=== PATIENT | male | born 1995 | race Hispanic/Latino ===

== ENCOUNTER 2021-06-15 15:12 | Emergency (ER) | payer SELFPAY ==
[2021-06-15 15:25] VITALS: BP 101/71; PULSE 82; RESP 16; TEMP 36.1; O2SAT 99
--- NOTE | 2021-06-15 15:25 | ED.ABDPAIN ---
HPI - Abdominal Pain General Chief Complaint: Abdominal Pain Stated Complaint: Stomach Pain Time Seen by Provider: 06/15/21 15:25 Source: patient and RN notes reviewed Mode of arrival: ambulatory Limitations: no limitations History of Present Illness HPI narrative: 26-year-old male presents to the [facility] with complaints of abdominal pain for 2-3 days. Pain to the lower abd. Denies nausea vomiting or diarrhea. No urinary symptoms. Last bowel movement was today. Denies fevers. Review of Systems Review of Systems: All systems reviewed & are unremarkable except as noted in HPI and below Constitutional: Constitutional: Reports no additional constitutional complaints Eyes: Eyes: Reports no additional eye complaints ENT: Reports system reviewed and no additional complaints, except as documented Cardiovascular: Cardiovascular: Reports no additional cardiovascular complaints Respiratory: Respiratory: Reports no additional respiratory complaints Gastrointestinal: Gastrointestinal: Reports abdominal pain (lower abd pain ), Denies diarrhea, Denies nausea and Denies vomiting Genitourinary: Genitourinary: Reports no additional male genitourinary complaints, Denies hematuria, Denies oliguria, Denies dysuria, Denies penile discharge, Denies urinary frequency and Denies urinary incontinence Musculoskeletal: Musculoskeletal: Reports no additional musculoskeletal complaints Integumentary/Breasts: Skin/Breast: Reports system reviewed and no additional complaints, except as docu Neurologic: Reports system reviewed and no additional complaints, except as documented Psychiatric: Psychiatric: Reports no additional psychiatric complaints Allergic/Immunologic: Allergic/Immunologic: Reports no additional allergic/immunologic complaints PMFSH Past Medical History Medical History (Updated 06/15/21 @ 15:33 by Desire Munguia) Patient denies significant medical history Surgical History Surgical History (Updated 06/15/21 @ 15:34 by Desire Munguia) No significant past surgical history Social History Social History (Updated 06/15/21 @ 15:34 by Desire Munguia) Gender identity (if verbalized by the patient): Male Comments At the time of my signature, I reviewed and agree with the nursing past medical, surgical, social, and family history. There is no relevant family history pertinent to the patient complaint. Exam Const: General: healthy appearing, no acute distress and alert Nutritional Appearance: well nourished and thin Orientation/consciousness: patient oriented x3 Limitations: no limitations and language barrier (Patient Marshallese-speaking. ) Other: Patient wanted to use friend as web services architect, broken Wolof. Used [employer] web services architect. HENMT: Head: normal to inspection Ears: external ears normal Eyes: Pupils: Equal, round and reactive pupils present Neck: Neck: normal visual inspection, no lymphadenopathy and no meningeal signs Chest: Chest palpation & inspection: normal inspection of the chest Resp: Effort & Inspection: normal respiratory effort and no use of accessory muscles Auscultation: clear to auscultation bilaterally, no crackles, no rales, no rhonchi and no wheezes Cardio: Rate: regular rate Rhythm: regular rhythm GI: GI Palp: Yes Soft to palpation, Yes Tenderness to palpation present (GI) (Left lower quadrant tenderness.), No Guarding due to palpation present (GI), No Rigid due to palpation and No Rebound tenderness present Auscultation: normal bowel sounds Other: With palpation of the left lower quadrant, complains of pain in the suprapubic and right lower quadrant pain. Tenderness in the suprapubic and umbilical area with palpation Back/Spine/Pelvis: Back: no CVA tenderness Skin: General skin exam: normal color Rashes: no rashes Wounds: no wounds Neuro: General: patient oriented x3, moves all extremities, no meningeal signs and no focal motor deficits Speech: normal speech Gait exam (Neuro): Normal gait
== END 2021-06-15 15:44 | disposition short-term general hospital (02) ==
LOC: EXPCOLL 15:16
PROVIDERS: Emergency Provider Nurse Practitioner
DX: R10.30 Lower abdominal pain, unspecified (principal)
CPT/HCPCS: 99202; G0463

== ENCOUNTER 2021-06-15 15:56 | Emergency (ER) | payer SELFPAY ==
--- NOTE | ~2021-06-15 | CT_ITS ---
EXAMINATION: CT abdomen pelvis wo con DATE: 06/15/2021 17:24 INDICATION: Low pelvic pain. Hematuria. TECHNIQUE: Computed tomography (CT) of the abdomen and pelvis was performed without intravenous contr ast. Automated exposure control and iterative reconstruction technique were employed. Exam dose: 172 .32 mGy-cm total exam DLP. COMPARISON: None. FINDINGS: The lung bases are clear. Normal heart size. No pericardial or pleural effusion. The liver, gallbladder, bile ducts, spleen, pancreas, pancreatic duct, and adrenal glands and kidneys are unremarkable on this limited noncontrast examination. No urinary tract calculus or hydroureteron ephrosis is detected. Normal caliber of the abdominal aorta. No intraperitoneal or retroperitoneal or pelvic mass lesion or adenopathy or ascites. No bowel obstruction, bowel wall thickening, pneumatosis, abscess or intraperitoneal free air is evid ent. The appendix is not clearly defined but no CT evidence of appendicitis is noted. The urinary bladder is relatively evacuated. Included skeletal structures are unremarkable. IMPRESSION: No significant abnormality is identified. Reviewed, dictated and finalized at [facility]. Reviewed, dictated and finalized at [facility].
[2021-06-15 16:04] VITALS: BP 99/68; PULSE 76; RESP 16; TEMP 36.6; O2SAT 100
[2021-06-15 17:36] LABS: Basophils Absolute Auto 0.1 K/mm3 (0.0-0.1); Basophils Percent Auto 0.9 % (0.2-1.2); Eosinophils Absolute Auto 0.1 K/mm3 (0-0.3); Eosinophils Percent Auto 2.1 % (0-4.4); Hematocrit 46.1 % (42.0-52.0); Hemoglobin 15.2 g/dL (14.0-18.0); Immature Granulocyte Absolute 0.01 K/mm3 (0.00-0.031); Immature Granulocyte Percent A 0.2 % (0-0.5); Lymphocytes Absolute Auto 1.93 K/mm3 (0.9-3.2); Lymphocytes Percent Auto 30.4 % (18.3-44.2); Mean Corpuscular Hemoglobin 26.7 pg (26-34); Mean Corpuscular Volume 80.9 fl (80-100); Mean Platelet Volume 9.6 fl (7.4-10.4); Monocytes Absolute Auto 0.4 K/mm3 (0.1-0.6); Monocytes Percent Auto 6.2 % (2.6-8.5); Neutrophils Absolute Auto 3.8 K/mm3 (1.3-6.7); Neutrophils Percent Auto 60.2 % (45.5-73.1); Platelet Count Result 212 k/mm3 (150-375); Red Cell Distribution Width 11.9 % (11.5-14.5); White Blood Count 6.3 K/mm3 (4.5-10.0)
[2021-06-15 17:56] LABS: Alanine Aminotransferase 14 U/L (4-50); Albumin Level 4.9 g/dL (3.5-5.1); Alkaline Phosphatase 59 U/L (38-126); Anion Gap 14 mmol/L (8-16); Aspartate Amino Transferase 25 U/L (17-59); Bilirubin,Total 1.4 mg/dL (0.2-1.3); Blood Urea Nitrogen 18 mg/dL (9-20); Calcium 9.2 mg/dL (8.4-10.2); Carbon Dioxide 25 mmol/L (22-30); Chloride 101 mmol/L (98-107); Estimated Glomerular Filt Rate > 60; Glucose 88 mg/dL (65-110); Potassium 3.3 mmol/L (3.4-5.0); Sodium 140 mmol/L (137-145)
[2021-06-15 18:08] LABS: Add Urine Microscopic? YES; Appearance Urine Clear (Clear); Bilirubin Urine Negative (Negative); Blood Urine 1+ (Negative); Color Urine Amber (Yellow); Glucose Urine UA Negative (Negative); Ketones Urine 2+ mg/dL (Negative); Leukocyte Esterase Ur Negative LEU/UL (Negative); Mucus Urine Heavy /lpf; Nitrate Urine Negative (Negative); Protein Urine 3+ mg/dL (Negative); Squamous Epithelial Cell Urine Occasional /hpf (Few)
[2021-06-15 18:09] LABS: Specific Grav Ur 1.035 (1.001-1.035)
--- NOTE | 2021-06-15 18:58 | ED.ABDPAIN ---
HPI - Abdominal Pain General Chief Complaint: Abdominal Pain Stated Complaint: Abd Pain Time Seen by Provider: 06/15/21 16:45 Source: patient and facilities project manager Mode of arrival: ambulatory Limitations: language barrier History of Present Illness HPI narrative: 26-year-old male History obtained using [email or web address] facilities project manager Patient states he is got a 4-day history of mild lower and left-sided abdominal pain He denies a fever He is moving his bowels okay sometimes with relief of his symptoms He does not have any urinary symptoms nor any nausea or vomiting In the past he has been told that similar symptoms were due to having a nervous colon Related Data Allergies Allergy/AdvReac Type Severity Reaction Status Date / Time No Known Allergies Allergy Verified 06/15/21 16:50 Review of Systems Review of Systems: All systems reviewed & are unremarkable except as noted in HPI and below Constitutional: Constitutional: Reports no additional constitutional complaints, Denies chills, Denies fatigue, Denies fever(s), Denies headache(s) and Denies weakness Eyes: Eyes: Reports no additional eye complaints and Denies change in vision ENT: Denies headache(s) and Denies sore throat Cardiovascular: Cardiovascular: Denies chest pain and Denies dyspnea Respiratory: Respiratory: Denies cough and Denies dyspnea Gastrointestinal: Gastrointestinal: Reports abdominal pain, Denies bloating, Denies constipation, Denies diarrhea, Denies nausea and Denies vomiting Genitourinary: Genitourinary: Denies hematuria, Denies dysuria and Denies urinary frequency Musculoskeletal: Musculoskeletal: Denies deformity and Denies numbness Integumentary/Breasts: Skin/Breast: Denies wounds PMFSH Past Medical History Medical History (Updated 06/15/21 @ 19:02 by Nate Petty MD) Patient denies significant medical history Surgical History Surgical History (Updated 06/15/21 @ 15:34 by Desire Munguia) No significant past surgical history Social History Social History (Updated 06/15/21 @ 15:34 by Desire Munguia) Gender identity (if verbalized by the patient): Male Exam Const: General: cooperative, healthy appearing, no acute distress and alert Orientation/consciousness: patient oriented x3 (alert) Other: Very skinny HENMT: Head: normal to inspection, normocephalic and atraumatic Ears: external ears normal Eyes: Conjunctivae: conjunctivae normal EOM: EOMs intact bilaterally Neck: Neck: normal visual inspection, supple and no JVD Resp: Effort & Inspection: normal respiratory effort and not labored Auscultation: clear to auscultation bilaterally and other (BS =) Cardio: Rate: regular rate Rhythm: regular rhythm Heart sounds: no murmurs GI: GI Palp: Yes Soft to palpation, Yes Tenderness to palpation present (GI) (Slightly tender to right of umbilicus), No Guarding due to palpation present (GI), No Palpable mass present and No Rebound tenderness present Other: No umbilical hernias : General: Yes no CVA tenderness Skin: General skin exam: normal color and no rashes or lesions noted Neuro: General: patient oriented x3 (alert) and moves all extremities Speech: normal speech Psych: Affect: normal affect Course Vital Signs Vital signs: Vital Signs Temperature 36.6 C 06/15/21 16:04 Pulse Rate 76 06/15/21 16:04 Respiratory Rate 16 06/15/21 16:04 Blood Pressure 99/68 L 06/15/21 16:04 Pulse Oximetry 100 06/15/21 16:04 Temperature 36.6 C 06/15/21 16:04 Pulse Rate 76 06/15/21 16:04 Respiratory Rate 16 06/15/21 16:04 Blood Pressure 99/68 L 06/15/21 16:04 Pulse Oximetry 100 06/15/21 16:04 MDM - Abdominal Pain Lab Data Result diagrams: 06/15/21 17:07 06/15/21 17:09 Labs: Lab Results 06/15/21 06/15/21 06/15/21 Range/Units 17:07 17:09 17:37 WBC 6.3 (4.5-10.0) K/mm3 RBC 5.70 (4.6-6.20) M/mm3 Hgb 15.2 (14.0-18.0) g/dL Hct 46.1 (42.0-52.0)
[2021-06-15 19:49] VITALS: BP 97/66; PULSE 70; RESP 20; TEMP 36.7; O2SAT 100
== END 2021-06-15 19:52 | disposition home or self-care (01) ==
PROVIDERS: Emergency Provider Emergency Medicine
DX: R10.9 Unspecified abdominal pain (principal); K58.9 Irritable bowel syndrome, unspecified
CPT/HCPCS: 36415; 74176; 80053; 81001; 85025; 99284